=== PATIENT | male | born 1925 | race Asian ===

== ENCOUNTER 2017-07-24 12:51 | Outpatient (CLI) | payer OTHER ==
[2014-05-25 19:54] VITALS: BMI 22.6
--- NOTE | 2017-07-24 13:31 | DI ---
Exam: Two x-rays of the chest. Comparison: None available. Reason for exam: Cough with fever. FINDINGS: No pneumothorax, pleural effusion, or focal consolidation. The cardiac silhouette is not enlarged. The imaged osseous structures appear grossly unremarkable. There is tortuosity of the thoracic aorta. Operative changes are seen in the left upper quadrant. D egenerative disease is seen in the thoracic spine. Impression: No acute cardiopulmonary process.
[2017-07-24] MEDS ORDERED: ALBUTEROL 0.083% NEB NEB STA (14:05)
--- NOTE | 2017-07-24 14:44 | MRI ---
EXAM: MRI cervical spine without IV contrast. DATE: 24 July 2017. HISTORY: Neck stiffness. TECHNIQUE: Sagittal and axial T1W and T2W sequences of the cervical spine along with sagittal IR an d coronal T2W sequences were obtained using 1.5 Skyla magnet. No IV contrast. COMPARISON: PA/lateral chest 24 July 2017. FINDINGS: Mild rotatory leftward curvature of the cervical spine is observed. A 2.1 mm anterior higginbotham bluxation of C7 relative to C6 is noted. No other subluxation, acute fracture, osseous malignancy, or pars interarticularis defect is demonstrated. Cervical vertebra are normal in height. Bone melisa ow signal is overall normal. Moderate C5-6 and marked C6-7 disc space narrowing is detected. Cervi navneet and upper thoracic spinal cord reveals no syrinx, cord edema, myelomalacia, or neoplasm. Visible brainstem and cerebellum are unremarkable. No pituitary lesion is identified. Minor mucosa l thickening is evident within sphenoid sinus and both maxillary sinuses. Trachea, larynx, and epig lottis appear normal. T2W bright, T1W slightly dark, 5.8 x 3.6 mm focus in the left thyroid lobe is best seen on axial image #24. No submandibular or parotid gland neoplasm is evident. Mastoid air cells are unremarkable. Left > right TMJ arthritis is suspected. No distinct neck mass, cervical l ymphadenopathy, apical lung mass, pneumonia, or pleural effusion is demonstrated. Segmental analysis: C1-2: Somewhat pencil appearance of the distal tip of the odontoid is observed. Soft tissue pannus posterior to the odontoid measures 6 mm thick. Spinal canal is 10.5 mm diameter at the C1 ring lev el. C2-3: Posterior disc/osteophyte complex (2.2 mm AP) does not contact the cord. Canal is 8.6 mm AP. Minor/mild right foraminal stenosis is due to mild to moderate right facet arthropathy. C3-4: Small posterior disc bulge (1.7 mm AP) may touch the cord anteriorly. Canal is 8.8 mm AP. M ild/moderate right and minor left foraminal stenoses due to uncinate hypertrophy and moderate right facet arthropathy. C4-5: Small posterior disc/osteophyte complex (1.4 mm AP) does not contact the cord. Canal is 8.8 mm AP. Moderate right foraminal stenosis is due to uncinate hypertrophy and moderate/marked right f acet arthropathy. C5-6: Broad posterior disc/osteophyte complex (2 mm AP) does not contact the cord. Canal is 8.8 mm AP. Each foramen is patent. There is mild/moderate right facet arthropathy. C6-7: Mild anterior subluxation of C7 and broad posterior disc/osteophyte complex cause anterior co rd flattening. Canal is 7.4 mm AP. Moderate bilateral foraminal stenoses due to uncinate hypertrop hy and mild facet arthropathy. C7-T1: Broad posterior disc/osteophyte complex (2.4 mm AP) does not contact the cord. Canal is 9 m m AP. Right foramen is mildly narrowed due to uncinate hypertrophy and moderate right facet arthrop athy. A T2W bright, T1W dark, 4 x 5.5 mm focus in the lateral aspect right foramen is likely a ino gn perineural cyst. T1-2: Normal, small posterior disc/osteophyte complex (2.3 mm AP) does not contact the cord rest. Canal is 7.3 mm AP. Mild bilateral foraminal stenoses due to uncinate hypertrophy and mild facet di sease. IMPRESSIONS: 1. C-spine mild levoscoliosis, moderate facet arthropathy, minor subluxations at C6-7, and multilev el DDD. 2. Multilevel central canal stenoses(C2-3: Mild. C3-4: Mild. C4-5: Mild. C5-6: Mild. C6-7: Mode rate. C7-T1: Mild. T1-2: Moderate). 3. Slight cord flattening at C6-7. No syrinx or myelomalacia. 4. Multilevel foraminal stenoses, especially C5-6 and C6-7. 5. Bilateral TMJ arthritis. 6. Bilateral maxillary and sphenoid sinus disease. Unexpected findin. Left thyroid lesion (3.6 mm -- etiology is uncertain. Consider US to deter mine cyst vs solid.
== END 2017-07-24 12:52 | disposition home or self-care (01) ==
LOC: RAD 12:51
PROVIDERS: ATTEND Emergency Medicine
DX: R05 Cough (principal); R50.9 Fever, unspecified; M43.6 Torticollis
CPT/HCPCS: 94640